=== PATIENT | female | born 1965 | race Caucasian/White ===

== ENCOUNTER 2017-12-27 11:44 | Emergency (ER) | payer MEDICAID, SELFPAY ==
[2017-12-27 11:45] VITALS: BP 126/82; PULSE 77; RESP 16; TEMP 37.2; O2SAT 99; BMI 19.6
--- NOTE | 2017-12-27 12:11 | RAD_ITS ---
STUDY: X-RAY - RIGHT SHOULDER REASON FOR EXAM: Female, 52 years old. Pain following injury. TECHNIQUE: 4 view(s) of the shoulder. COMPARISON: None. FINDINGS: Normal glenohumeral articulation. Normal acromioclavicular joint. Normal acromion. Normal humeral head and visualized proximal humerus. The soft tissue structures are unremarkable. Normal visualized pulmonary apex. RAD/Shoulder min 2 Views IMPRESSION: Normal x-ray examination of the shoulder. Electronically Signed: Aldair Todd MD at 12:53 EDT Tel [phone], Service support ,
--- NOTE | 2017-12-27 13:31 | ED.DCSUM_ITS ---
- ER Visit Summary Date of Service: 12/27/17 Chief Complaint: [Injury to right shoulder] History of Present Illness: The patient is a 52 F [presents the emergency department complaint of injury to the right shoulder that occurred prior to arrival in the emergency department. Patient states that she was messing around with her dog outside when she tripped over a tree root and fell into the tree with her right shoulder. Patient is right-hand dominant. Patient complains of shoulder pain. She denies any neck pain or head injury.] Physical Examination: [HEENT-PERRLA, EOMI. Cranial nerves II through XII grossly intact. TMs clear. Mucous membranes moist. No adenopathy. Cardiovascular-regular rate and rhythm without murmur or ectopy Lungs-clear to auscultation, chest wall stable without crepitus or subcu emphysema Abdomen-normoactive bowel sounds, soft, nontender, no rebound or rigidity, no peritoneal signs. Extremities-intact ?4, normal range of motion, normal pulses, atraumatic]. Right shoulder-mild diffuse tenderness about the glenohumeral joint. There is no ecchymosis or bruising noted. There is no obvious deformity. There is no sulcus sign. Patient has pain with abduction and resists abducting past 30?. She is nervously intact distally with normal station normal cap refill Test Results: [X-rays of the right shoulder obtained were normal ] Emergency Department Course and Treatment: [Patient was given a sling and one [place]] Treatment Plan: [Sling and follow-up with her orthopedic surgeon within next 5- 7 days] Disposition: [Discharged home in stable condition] Impression: [Contusion right shoulder] This note was generated with [employer] dictation software. It may contain incorrect words, spelling, and punctuation that were not noted in review of the chart prior to signing ED Disposition - Plan for ED Patient: Chief Complaint: Upper Extremity Injury Referrals: Eva Rosario MD [Primary Care Provider] -
--- NOTE | 2017-12-27 13:31 | ED.DEP ---
ED Disposition - Plan for ED Patient: Chief Complaint: Upper Extremity Injury Instructions: ED Contusion Upper Ext Prescriptions: Hydrocodone Bitart/Apap 5-325 [[place] 5MG-325MG] 1 tab PO Q4H PRN PRN 2 Days #10 tab PRN Reason: Pain Referrals: Eva Rosario MD [Primary Care Provider] - Monisha Benson DO [STAFF PHYSICIAN] - 5-7 Days
[2017-12-27] MEDS: HYDROcodone Bitartrate/Apap 5/325 Tablet PO (13:44)
[2017-12-27 13:50] VITALS: BP 117/84; RESP 16
== END 2017-12-27 13:50 | disposition home or self-care (01) ==
LOC: ED 13:21
PROVIDERS: Emergency Provider Emergency Medicine; Family Provider Internal Medicine; PCP Internal Medicine
DX: S40.011A Contusion of right shoulder, initial encounter (principal); W18.09XA Striking against other object with subsequent fall, initial encounter; Y93.89 Activity, other specified; Y92.9 Unspecified place or not applicable; Y99.8 Other external cause status; G40.909 Epilepsy, unspecified, not intractable, without status epilepticus; F12.90 Cannabis use, unspecified, uncomplicated; Z79.899 Other long term (current) drug therapy; Z72.0 Tobacco use
CPT/HCPCS: 73030; 99283

== ENCOUNTER → 2018-01-14 13:13 | Outpatient (CLI) | payer MEDICAID, SELFPAY | PROVIDERS: Family Provider Internal Medicine; PCP Internal Medicine; Visit Provider Orthopaedic Surgery | DX: M25.511 Pain in right shoulder (principal) | CPT/HCPCS: 73020 ==

== ENCOUNTER 2019-03-11 16:41 | Inpatient (IN) | payer MEDICAID, SELFPAY ==
[2019-03-11] VITALS (7 sets, daily range): BP systolic 94–141; BP diastolic 70–95; PULSE 63–83; RESP 13–19; TEMP 36.7–36.8; O2SAT 98–100; BMI 17.6; BMI 17.9
--- NOTE | 2019-03-11 16:50 | EKG12_ITS ---
Test Reason : Blood Pressure : / mmHG Vent. Rate : 080 BPM Atrial Rate : 080 BPM P-R Int : 148 ms QRS Dur : 086 ms QT Int : 392 ms P-R-T Axes : 078 082 068 degrees QTc Int : 452 ms Normal sinus rhythm Normal ECG Confirmed by KARIN SARMIENTO ([id number]), editor publications SHABANA LEZAMA ([id number]) on 03/14/2019 10:15:09 AM Referred By: Patti Fong Confirmed By:KARIN SARMIENTO
--- NOTE | 2019-03-11 16:50 | CT_ITS ---
STUDY: CT BRAIN WITHOUT CONTRAST REASON FOR EXAM: Female, 53 years old. Fall RADIATION DOSAGE (If Supplied By Facility): DLP = ( 779.24 ) mGycm TECHNIQUE: Transaxial CT imaging of the brain was performed without administration of intravenous contrast material. Individualized dose optimization techniques were used for this CT. COMPARISON: CT head December 30, 2016 FINDINGS: There is no acute bleed or infarct. There are normal white matter tracts. The ventricles are normal in configuration. There is no hydrocephalus. The visualized paranasal sinuses are clear. The mastoid air cells are well aerated. There is no skull fracture. CT/Brain/Head without Contrast IMPRESSION: No acute intracranial abnormality. Electronically Signed: Justin Mendoza, at 18:43 EDT Tel , Service support ,
--- NOTE | 2019-03-11 16:51 | ED.DCSUM_ITS ---
History of Present Illness Chief Complaint: Seizure Informant: Patient, Family Limited by: Uncooperative Onset: Today Context: Sudden Onset Timing: Waxes and wanes Narrative: Patient is a 53-year-old female with history of anxiety, depression, PTSD and seizure disorder presenting with seizure activity and laceration to her right hand. Family brought her in after they found her at her house after what appeared to be a seizure. Patient had a cut to her right hand. While patient was in the waiting room patient had another seizure in the bathroom. It was generalized and lasted for 1 to 2 minutes. Afterwards patient was extremely combative. Patient did recently stop taking her Keppra because she did not like the way it made her feel. Patient denies any alcohol or drug use. She is not able to provide a further history. Nursing staff note the patient not have any evidence of urinary incontinence. Sister states patient lowered herself to the floor before she started having the seizure in the bathroom. Patient is currently yelling that there is nothing wrong with me. Past Medical History - Allergies and Home Meds Allergies/Adverse Reactions: Allergies codeine Allergy (Verified 01/10/18 15:02) Shortness of breath Sulfa (Sulfonamide Antibiotics) Allergy (Verified 01/10/18 15:02) Abd cramps/diarrhea Prior records reviewed: Yes Past Medical History: - - Disorder, anxiety, depression, PTSD, hypertension Surgical History: noncontributory Lives: Alone Smoking Status: Current every day smoker - Family History Maternal Family History: Reports: - - Patient with maternal family history of alcoholism as well as a maternal cousin with seizure history. Paternal Family History: Reports: - - Patient notes a paternal family history of heart disease, [place] with cardiac associated when she was only 2 years old. Review of Systems ROS: Unable to Obtain - Review of systems is limited secondary patient's mental status change Skin: Reports: Wounds - Right hand Neurological: Reports: - - seizure Physical Exam Vital Signs/Narrative: Vital Signs Temp Pulse Resp Pulse Ox 03/11/19 16:42 98.0 F 83 19 H 99 Inital Vital Signs reviewed: Yes General: Well nourished, Well developed, No Acute Distress Head: Normocephalic, Atraumatic Eyes: Perrl, EOMI ENT: Moist mucous membranes, No rhinorrhea, - - No tongue laceration, no septal hematoma Neck: Supple, Nontender Cardiovascular: Regular rhythm, No murmurs, Tachycardia Respiratory: No distress, CTA bilaterally, Chest nontender Abdomen: Soft, Nontender, Nondistended, Normal bowel sounds Back: Nontender, Normal Inspection Extremities: Nontender, No edema, - - Normal range of motion of the right hand Skin: Normal color, No rash, Trauma - 2 cm full-thickness semilunar laceration over right hyperthenar eminence with exposure of muscles Neurological: Alert, Oriented x3, Cranial nerves II-XII grossly intact, Normal Strength, Normal Sensation Psychological: Normal affect, Normal Mood Diagnostic/Tx/Re-eval Chest X-Ray - ED: 1 View, Read by ED Physician, Read by Radiologist, No Acute Disease Clinical Impression(s) from Imaging Studies Brain CT 03/11/19 16:50 IMPRESSION: No acute intracranial abnormality. Electronically Signed: Justin Kelly, at 18:43 EDT Tel , Service support , Chest X-Ray 03/11/19 17:30 IMPRESSION: No acute thoracic pathology. Electronically Signed: Justin Mendoza, at 17:40 EDT Tel , Service support , Laboratory Data 03/11/19 03/11/19 03/11/19 16:45 16:45 16:45 WBC 9.8 RBC 5.06 Hgb 16.3 H Hct 49.8 H MCV 98.4 MCH 32.2 H MCHC 32.7 RDW Std Deviation 46.5 H RDW Coeff of Angella 12.9 Plt Count 311 MPV 9.9 Immature Gran % (Auto) 0.200 Neut % (Auto) 41.6 L Lymph % (Auto) 51.4 H [place] % (Auto) 4.3 Eos % (Auto) 1.2 Baso % (Auto) 1.3 H Absolute Neuts (auto) 4.1 Absolute Lymphs (auto) 5.02 H Nucleated RBC % 0 Differential Comment SEE COMMENT Diff Path Review May foll Platelet Estimate ADEQUATE Plt Morphology Comment LARGE RBC Morphology N CHROM Anisocytosis RARE Macrocytosis RARE Sodium 148 H Potassium 4.1 Chloride 115 H Carbon Dioxide 25.0 Anion Gap 8 BUN 9 Creatinine 0.82 Estim Creat Clear Calc 56.16 Est GFR (MDRD) Af Amer 93 Est GFR (MDRD) Non-Af 77 BUN/Creatinine Ratio 10.9 Glucose 92 Calcium 9.0 Phosphorus Magnesium Total Creatine Kinase 95 TSH Urine Opiates Screen Urine Methadone Screen Ur Barbiturates Screen Ur Phencyclidine Scrn Ur Amphetamines Screen U Methamphetamin-MDMA U Benzodiazepines Scrn Urine Cocaine Screen U Cannabinoids Screen Ur Drug Screen Comment Ethyl Alcohol 284.0 03/11/19 03/11/19 16:45 17:00 WBC RBC Hgb Hct MCV MCH MCHC RDW Std Deviation RDW Coeff of Angella Plt Count MPV Immature Gran % (Auto) Neut % (Auto) Lymph % (Auto) [place] % (Auto) Eos % (Auto) Baso % (Auto) Absolute Neuts (auto) Absolute Lymphs (auto) Nucleated RBC % Differential Comment Diff Path Review Platelet Estimate Plt Morphology Comment RBC Morphology Anisocytosis Macrocytosis Sodium Potassium Chloride Carbon Dioxide Anion Gap BUN Creatinine Estim Creat Clear Calc Est GFR (MDRD) Af Amer Est GFR (MDRD) Non-Af BUN/Creatinine Ratio Glucose Calcium Phosphorus 4.2 Magnesium 2.4 Total Creatine Kinase TSH 2.98 Urine Opiates Screen NEGATIVE Urine Methadone Screen NEGATIVE Ur Barbiturates Screen NEGATIVE Ur Phencyclidine Scrn NEGATIVE Ur Amphetamines Screen NEGATIVE U Methamphetamin-MDMA NEGATIVE U Benzodiazepines Scrn NEGATIVE Urine Cocaine Screen NEGATIVE U Cannabinoids Screen POSITIVE H Ur Drug Screen Comment Ethyl Alcohol - Rhythm Strip Rhythm Strip: Sinus Rhythm Rate: 80 Ectopy: None - EKG Initial EKG Interpretation: Sinus Rhythm, - - Normal sinus rhythm at a rate of 80 Normal intervals Normal axis Normal ST segments No change compared to prior EKG on 12/30/2016 - Medical Decision Making Patient is evaluated for seizure activity. Initially patient had what the family presumed to be a seizure episode at home. Patient also cut her right hand at home. Chart review shows that her tetanus is up-to-date. They note she stopped taking her seizure medication, Keppra. While patient was in the waiting room she had another seizure-like episode. It lasted for 1 to 2 minutes and then afterwards patient stopped seizing but was very combative, kicking and uncooperative. Patient was brought back to her room and became even more combative, attempting to strike out at staff as well as cursing at them. Patient received 2 of IM Ativan with no improvement and then [address] of the brain showed no acute process. CBC was normal except for signs of hemoconcentration. Patient sodium was also mildly elevated again consistent with dehydration. She had a normal anion gap and normal electrolytes. Alcohol was elevated and urine drug screen was positive for marijuana. It is not clear if patient truly had seizure activity or this is more behavioral. I did discuss the case with neurology on-call who states that if there was concern for a breakthrough seizure we could load her with Keppra. Patient is given 1 g of IV Keppra. She will be admitted to the PCU for further evaluation of possible seizure activity, mental status change and dehydration. Patient's family is agreeable with this. Patient did sustain a laceration to her right hand prior to arrival which is repaired in the ER. See procedure note. Patient stable for the PCU at time of disposition. Procedures - Lacerations No standard instances Length: 0.79 in Depth: Skin Shape: Similunar Prep: Sterile Conditions, Chlorhexadine Laceration repair: Lidocaine with epi, Local, Wound explored Irrigated (ml): 200 Number of Sutures/Art: 3 Suture Information: Ethilon, 4-0 ED Disposition - Plan for ED Patient: Disposition: Acute Care [facility] Diagnosis: Seizure, Alcohol abuse, Dehydration, AMS (altered mental status)
[2019-03-11 16:59] LABS: Absolute Lymphocyte Count 5.02 X10^3/uL (0.83-4.51); Absolute Neutrophil Count 4.1 X10^3/uL (2.0-7.7); Basophil# 0.13 X10^3/uL; Basophil% 1.3 % (0-1); Eosinophil# 0.12 X10^3/uL; Eosinophils% 1.2 % (0-5); Hematocrit 49.8 % (37-47); Hemoglobin 16.3 g/dL (12.0-15.0); Lymphocyte # 5.02 X10^3/ul (4.0); Lymphocyte % 51.4 % (19-41); Mean Corp Hgb Conc 32.7 g/dL (32-36); Mean Corpuscular Hgb 32.2 pg (27.0-32.0); Mean Corpuscular Volume 98.4 fL (81-99); Mean Platelet Vol. 9.9 fl (6.2-12.0); Monocyte# 0.42 X10^3/uL; Monocyte% 4.3 % (0-10); NRBC Flagged by Analyzer 0 % (0-5); Neutrophil # 4.05 X10^3/uL (2.7-7.7); Neutrophil % 41.6 % (47-70); POSITIVE DIFFERENTIAL YES; Platelet Count 311 K/mm3 (150-450); RBC Distribution Width CV 12.9 % (11.6-14.6); RBC Distribution Width SD 46.5 fl (35.1-43.9); Red Blood Count 5.06 M/mm3 (4.2-5.4); White Blood Count 9.8 K/mm3 (4.4-11.0)
[2019-03-11] MEDS: LORazepam 2 MG/ML Syringe IM (17:00)
[2019-03-11] MEDS: Ziprasidone IM 20 MG/ML VIAL IM (17:00)
[2019-03-11 17:04] LABS: Differential Indicated SCAN CRITERIA MET
[2019-03-11] MEDS: 0.9% Normal Saline 1,000 ML 999 ML IV (17:14)
[2019-03-11 17:21] LABS: Anisocytosis RARE; Macrocytosis RARE; Platelet Estimate ADEQUATE (ADEQ); Platelet Morphology LARGE; Red Cell Morphology N CHROM NORMAL (NORM C&C)
[2019-03-11 17:22] LABS: Anion Gap 8 (5-15); BUN 9 mg/dL (7-18); BUN/Creat Ratio 10.9 RATIO (10-20); CPK Total, Creatine Kinase 95 U/L (26-192); Chloride 115 mmol/L (98-107); Creatinine, Serum 0.82 mg/dL (0.55-1.02); EST Glomerular Filtration Rate 77 mL/min (>60); Est Glom Filt Rate - Afr Amer 93 mL/min (>60); Estimated Creatinine Clearance 56.16 ml/min; Glucose 92 mg/dL (74-106); Potassium 4.1 mmol/L (3.5-5.1); Sodium Level 148 mmol/L (136-145)
[2019-03-11 17:30] LABS: Amphetamine Urine VISTA NEGATIVE (<1000 ng/mL); Barbiturate Urine VISTA NEGATIVE (< 200 ng/mL); Benzodiazepine Urine VISTA NEGATIVE (< 200 ng/mL); Cocaine Urine VISTA NEGATIVE (< 300 ng/mL); Ecstacy Urine VISTA NEGATIVE (< 500 ng/mL); Methadone Urine VISTA NEGATIVE (< 300 ng/mL); PCP Urine VISTA NEGATIVE (< 25 ng/mL); THC Urine VISTA POSITIVE (< 50 ng/mL); Vista UDS pH Range 6
--- NOTE | 2019-03-11 17:30 | RAD_ITS ---
STUDY: X-RAY CHEST REASON FOR EXAM: Female, 53 years old. Pain TECHNIQUE: Frontal view of the chest COMPARISON: X-ray chest December 30, 2016 FINDINGS: The lungs are clear. There are no pleural effusions. There is no pneumothorax. The heart is normal in size. The visualized osseous structures are within normal limits. RAD/Chest 1 View (Portable) IMPRESSION: No acute thoracic pathology. Electronically Signed: Justin Mendoza, at 17:40 EDT Tel , Service support ,
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
[2019-03-11] MEDS: levETIRAcetam IV 1,000 MG/100 ML BAG 400 MG IV (19:41)
[2019-03-11] MEDS: 0.9% Normal Saline 1,000 ML 150 ML IV (20:49)
[2019-03-11 21:05] LABS: Magnesium 2.4 mg/dL (1.6-2.6); Phosphorus 4.2 mg/dL (2.5-4.9); Thyroid Stim Hormone (TSH) 2.98 uIU/mL (0.358-3.74)
[2019-03-11] MEDS: Famotidine 200 MG/20 ML MDV 20 MG in 0.9% Normal Saline (Pres. free 8 ML 300 MG IV (22:45)
[2019-03-11] MEDS: Phenytoin Na 100 MG/2 ML Vial IV (22:46)
--- NOTE | 2019-03-11 23:25 | NURSING ---
Pt. gets out of bed without staff assistance to use BR. Pt. agitated and pulled out IV and refusing to have a new one placed. Heart monitor removed by pt. Pt. pushes her way out of bed and paced the hallways looking for water and a way out. Pt. very unsteady and argumentative with caregivers Requesting to leave AMA.
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
[2019-03-12 14:54] LABS: Pathologist Review Reviewed
== END 2019-03-12 00:50 | disposition left against medical advice (07) | DRG 53 ==
LOC: ED 17:06 → PCU 19:49
PROVIDERS: Admitting Provider Family Medicine; Emergency Provider Emergency Medicine; Family Provider Internal Medicine; PCP Internal Medicine; Referring Provider Family Medicine; Visit Provider Family Medicine
DX: G40.509 Epileptic seizures related to external causes, not intractable, without status epilepticus (principal); F10.129 Alcohol abuse with intoxication, unspecified; Y90.8 Blood alcohol level of 240 mg/100 ml or more; G89.4 Chronic pain syndrome; S61.411A Laceration without foreign body of right hand, initial encounter; X58.XXXA Exposure to other specified factors, initial encounter; E86.0 Dehydration; F32.9 Major depressive disorder, single episode, unspecified; F41.9 Anxiety disorder, unspecified; F43.12 Post-traumatic stress disorder, chronic; F17.210 Nicotine dependence, cigarettes, uncomplicated; F12.20 Cannabis dependence, uncomplicated; Z68.1 Body mass index [BMI] 19.9 or less, adult; Z91.410 Personal history of adult physical and sexual abuse; Z53.29 Procedure and treatment not carried out because of patient's decision for other reasons
CPT/HCPCS: 70450; 71045; 80048; 80307; 80320; 82550; 83735; 84100; 84443; 85025; 93005; 99285; J7030; A4216; G0480; J3486; J3490

== ENCOUNTER 2019-10-20 13:10 | Emergency (ER) | payer MEDICAID, SELFPAY ==
[2019-03-11 20:35] VITALS: BMI 17.9
[2019-10-20 13:12] VITALS: BP 127/90; PULSE 104; RESP 18; TEMP 36.2; O2SAT 95; BMI 21.2
--- NOTE | 2019-10-20 13:49 | ED.VIS.GEN ---
History of Present Illness Chief Complaint: Laceration Informant: Patient Onset: Today Current Severity: Moderate Maximum Severity: Moderate Narrative: Patient presents with laceration to the anterior right thigh. She states she was throwing out some trash and believes she got cut with a piece of glass. Tetanus is up-to-date. She is been able to ambulate on her leg without difficulty. - Past Medical History (1) Seizure Status: Chronic (2) Chronic pain syndrome Status: Chronic (3) Anxiety and depression Status: Chronic (4) PTSD (post-traumatic stress disorder) Status: Chronic Past Medical History - Allergies and Home Meds Allergies/Adverse Reactions: Allergies codeine Allergy (Verified 10/20/19 13:12) Shortness of breath Sulfa (Sulfonamide Antibiotics) Allergy (Verified 10/20/19 13:12) Abd cramps/diarrhea Primary Care Physician: Eva Rosario MD [Primary Care Provider] - 10 Day for suture removal Prior records reviewed: Yes Surgical History: noncontributory, - - Right shoulder arthroscopic surgery, bilateral lung pneumonia drainage, questionable VATS. Lives: Spouse/ Significant Other Smoking Status: Current every day smoker - Family History Maternal Family History: Reports: - - Patient with maternal family history of alcoholism as well as a maternal cousin with seizure history. Paternal Family History: Reports: - - Patient notes a paternal family history of heart disease, [place] with cardiac associated when she was only 2 years old. Review of Systems General: Denies: Chills, Fever Eyes: Denies: Visual changes - bilaterally ENT: Denies: Bilateral ear pain Cardiovascular: Denies: Chest pain Respiratory: Denies: Dyspnea, Cough Gastrointestinal: Denies: Abdominal pain, Vomiting Musculoskeletal: Reports: Extremity Pain Skin: Reports: Wounds Neurological: Denies: Headache, Parasthesia Hematologic: Denies: Easy bruising, Easy bleeding Allergy: Denies: Uticaria Physical Exam Vital Signs/Narrative: Vital Signs Temp Pulse Resp BP Pulse Ox 10/20/19 13:12 97.1 F L 104 H 18 127/90 H 95 Inital Vital Signs reviewed: Yes General: Well nourished, Well developed Head: Normocephalic ENT: Moist mucous membranes Neck: Supple Cardiovascular: Regular rate, Regular rhythm Respiratory: No distress, CTA bilaterally Abdomen: Soft, Nontender Extremities: - - 6 cm long laceration over the anterior right thigh. Wound is gaping approximately 2 cm. Mild bleeding noted. Strong distal pulses are noted. Full range of motion at all joints. Skin: - - As above Neurological: Alert, Oriented x3, Normal Strength, Normal Sensation Psychological: Normal affect Diagnostic/Tx/Re-eval - Medical Decision Making Wound is cleansed. 10 cc of 1% lidocaine are used locally for anesthesia. 3 subcutaneous sutures with 4-0 rapid Vicryl are placed. Skin is then closed with 8 simple 4-0 nylon sutures. Dressing is applied and wound care is discussed. Patient was encouraged to follow-up with her primary care doctor in 10 days for suture removal. Procedures - Lacerations No standard instances Length: 2.36 in Depth: Sub Q Shape: Linear Laceration repair: Irrigated, Lidocaine, Local ED Disposition - Plan for ED Patient: Disposition: Home or Assisted Living Diagnosis: Laceration Instructions: ED Laceration Ext Sutr Stap Tape Referrals: Eva Rosario MD [Primary Care Provider] - 10 Day for suture removal
[2019-10-20 14:08] VITALS: RESP 15
== END 2019-10-20 14:00 | disposition home or self-care (01) ==
LOC: ED 14:06
PROVIDERS: Emergency Provider Emergency Medicine; PCP Internal Medicine
DX: S71.111A Laceration without foreign body, right thigh, initial encounter (principal); F17.200 Nicotine dependence, unspecified, uncomplicated; W25.XXXA Contact with sharp glass, initial encounter
CPT/HCPCS: 12002; 99283